=== PATIENT | male | born 1965 | race Caucasian/White ===

== ENCOUNTER 2019-05-22 06:22 | Inpatient (IN) | payer OTHER ==
[~2019-05-22] VITALS: Ht 175.3 cm; Wt 68.0 kg
--- NOTE | ~2019-05-22 | PROC ---
[address] [address] PROCEDURE REPORT Name: NAYELY CHERY Room: [address] IN ..#: [id number] Admission: 05/22/19 Attend Phys: Samantha Zuniga MD Discharge: Date of : 69 Report #: [id number] THIS REPORT FOR: //name// For GI report, please see the provation report in perceptive 7 content. By: [id number] Records Staff DEREK /BRENDAN
[2019-05-22 06:30] VITALS: BP 144/98
[2019-05-22 07:08] LABS: URINE BILIRUBIN 1+ (Negative); URINE BLOOD NEGATIVE (Negative); URINE CLARITY CLEAR; URINE COLOR YELLOW; URINE GLUCOSE-RANDOM NEGATIVE (Negative); URINE KETONES 1+ (Negative); URINE LEUKOCYTES-REFLEX NEGATIVE (Negative); URINE NITRITE-REFLEX NEGATIVE (Negative); URINE PROTEIN 1+ (Negative); URINE SPECIFIC GRAVITY >= 1.030 (1.005-1.030); URINE UROBILINOGEN 0.2 E.U./dl (0.2-1.0)
[2019-05-22 07:10] LABS: ICTOTEST (BILI CONFIRMATORY) Negative (Negative)
[2019-05-22 07:20] LABS: HEMATOCRIT 39.5 % (42.0-52.0); MCHC 30.5 g/dL (28.0-37.0); MCV 68.8 fL (80.0-100.0); MPV 8.2 fl. (7.2-11.1); NUCLEATED RBCS 0 /100WBC; PLATELET COUNT* 522 thou/uL (150-400); RBC 5.74 mil/uL (4.50-6.00); RDW-CV 17.4 % (10.5-14.5); WBC 13.9 thou/uL (4.0-11.0)
[2019-05-22 07:28] LABS: CALCIUM 9.1 mg/dL (8.5-10.1); CREATININE 1.3 mg/dL (0.6-1.3); POTASSIUM 3.9 mmol/L (3.5-5.1)
[2019-05-22 07:32] LABS: TOTAL BILIRUBIN 0.6 mg/dL (<0.1-1.0)
[2019-05-22 08:17] LABS: ABSOLUTE MONOCYTES 0.3 thou/uL (0.0-1.2); ABSOLUTE NEUTROPHILS 12.6 thou/uL (1.6-8.1); ATYPICAL LYMPHS 1 %
[2019-05-22 08:20] LABS: ANISOCYTOSIS 1+; PLATELET ESTIMATE INCREASED
[2019-05-22 08:21] LABS: MICROCYTES 3+
--- NOTE | 2019-05-22 11:38 | NUR ---
SURGERY NURSE AT BEDSIDE. TO TAKE PT TO PREOP VIA WHEELCHAIR.
[2019-05-22 11:39] VITALS: BP 127/80
[2019-05-22 22:04] VITALS: BP 123/76
[2019-05-22 23:06] LABS: GLYCOHEMOGLOBIN (HGB A1C) 5.8 % (4.8-5.6)
[2019-05-23] VITALS: BP 135/77
[2019-05-23 04:00] VITALS: BP 123/65
[2019-05-23 04:26] LABS: ABSOLUTE LYMPHOCYTES 0.6 thou/uL (0.8-5.3); ABSOLUTE NEUTROPHILS 10.2 thou/uL (1.6-8.1); BASOPHILS 0.1 %; HEMATOCRIT 32.3 % (42.0-52.0); MCH 20.7 pg (26.0-34.0); MCHC 30.3 g/dL (28.0-37.0); MCV 68.3 fL (80.0-100.0); MONOCYTES 8.2 %; MPV 7.8 fl. (7.2-11.1); NUCLEATED RBCS 0 /100WBC; POLYS 86.7 %; RBC 4.73 mil/uL (4.50-6.00); WBC 11.8 thou/uL (4.0-11.0)
[2019-05-23 04:42] LABS: ALBUMIN 2.9 g/dL (3.4-5.0); CALCIUM 7.8 mg/dL (8.5-10.1); CREATININE 0.9 mg/dL (0.6-1.3); POTASSIUM 4.1 mmol/L (3.5-5.1); TOTAL BILIRUBIN 0.4 mg/dL (<0.1-1.0); TOTAL PROTEIN 5.9 g/dL (6.4-8.2)
[2019-05-23 04:44] LABS: HEMOGLOBIN 9.8 gm/dL (14.0-18.0); PLATELET COUNT* 394 thou/uL (150-400)
--- NOTE | 2019-05-23 05:38 | NUR ---
REPORTED PAIN AT 0215 GAVE 2MG OF MORPHINE. HE HAD A BM AT 0415 IT WAS LOOSE AND WATERY. HE WAS ABLE TO AMBULATE WELL TO THE BATHROOM STANDBY ASSIST. NG TUBE HAS GOOD OUTPUT. STILL ON 3L OXYGEN AND LACTATED RINGERS AT 120 MLS/HR. SLEPT WELL MOST OF THE SHIFT. REPORTED NO PAIN AT AT 0530.
[2019-05-23 09:25] VITALS: BP 119/77
--- NOTE | 2019-05-23 11:26 | CON ---
[address] [address] CONSULTATION Name: MIRINAYELY Case Room: [address] IN M.R.#: [id number] Admission: 05/22/19 Attend Phys: Samantha Zuniga MD Discharge: Date of : 69 Report #: [id number] THIS REPORT FOR: //name// CC: [facility] physician/PCP Samantha Zuniga DATE OF SERVICE: 05/22/2019 ATTENDING PHYSICIAN: Dr. Singh CONSULTING PHYSICIAN: Dr. Jennings ASSESSMENT: 1. Large bowel obstruction. 2. Apple-core lesion on CT of colon. 3. Liver lesion. 4. Nausea and vomiting. RECOMMENDATIONS: 1. Thank you for the consultation. We will follow along. 2. I did discuss the patient's case with Gastroenterology. Gastroenterology will proceed with colonoscopy and attempted stent placement. 3. If stent is able to be placed, the patient will be allowed to be decompressed and he can therefore undergo a bowel prep and then colon resection with reanastomosis. 4. If stent is not possible, the patient will need an ex-lap with Gus's procedure this evening. The risks, benefits and alternatives of a colon resection were discussed with the patient. The risks discussed included but were not limited to the risk of bleeding, infection, postoperative abscess, anastomotic leak. If we operate tonight, he will be receiving an ostomy, he understands what an ostomy is. He understands that this would be an open procedure with a large incision, anesthesia (including cardiac, pulmonary, neurologic type complications) and . The patient had the opportunity to ask questions. All questions were answered to the best of my ability. At the end of the discussion, he and his did wish to proceed with surgery. 5. Await pathologic workup. If this is indeed adenocarcinoma, the patient will need the recommended adenocarcinoma of the colon workup. HISTORY OF PRESENT ILLNESS: The patient is a very pleasant 54-year-old gentleman who started feeling unwell on Saturday. The patient reports that he felt normal on Saturday. He developed abdominal pain. His last bowel movement was on Saturday. He has not passed flatus for several days. He then developed nausea and vomiting. He then presented to his primary care physician, [place] [address] CONSULTATION Name: NAYELY CHERY Manpreet Room: [address]#: [id number] Admission: 05/22/19 Attend Phys: Samantha Zuniga MD Discharge: Date of : 69 Report #: [id number] some radiologic tests were ordered and medications were prescribed. One of the medications prescribed was Linzess. The patient's abdominal pain, nausea and vomiting worsened overnight, so he presented to the ER this morning. CT scan was obtained in the ER that demonstrated a large bowel obstruction due to an apple-core lesion in the sigmoid colon. The CT scan also identified a liver lesion as well. PAST MEDICAL HISTORY: 1. Right inguinal hernia. 2. Left eye retinal detachment. PAST SURGICAL HISTORY: 1. Left eye in October, November, and March for retinal detachment. 2. The patient denies history of colonoscopy. SOCIAL HISTORY: Occasional, very rare alcohol use. Denies any use of tobacco. 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 FAMILY HISTORY: 1. Denies a family history of coagulopathy, malignancy. 2. Mother and father with heart disease and stroke. REVIEW OF SYSTEMS: CONSTITUTIONAL: No fever. No chills. HEENT: Denies blurring of vision, double vision, headaches, hearing loss, sinus drainage or sore throat. Denies blurring of vision, double vision, headaches, hearing loss, sinus drainage or sore throat. CARDIOVASCULAR: Denies chest pain, palpitations, orthopnea or paroxysmal nocturnal dyspnea. RESPIRATORY: Denies cough, wheezing, hemoptysis, or shortness of air. GASTROINTESTINAL: See below. GENITOURINARY: Denies dysuria or hematuria or kidney stones. No urinary frequency, urgency or incontinence. Denies dysuria or hematuria or kidney stones. No urinary frequency, urgency or incontinence. MUSCULOSKELETAL: No joint pain. No muscle pain. NEUROLOGICAL: Denies tremor, stroke or seizure. Denies tremor, stroke or seizure. HEMATOLOGIC/LYMPHATICS: Denies easy bruising, easy bleeding or enlarged lymph nodes. SKIN: No rash or ulceration. ENDOCRINE: No heat or cold intolerance PSYCHIATRIC: Denies depression, anxiety, or schizophrenia. PHYSICAL EXAMINATION: VITAL SIGNS: Temperature 36.7, pulse 87, respiratory rate 17, [place] [address] CONSULTATION Name: NAYELY CHERY Manpreet Room: [address]#: [id number] Admission: 05/22/19 Attend Phys: Samantha Zuniga MD Discharge: Date of : 69 Report #: [id number] 127/80, pulse ox 98% on room air. GENERAL: No apparent distress, alert and oriented. HEENT: NCAT, EOMI. NECK: Soft, normal range of motion. PULMONARY: Nonlabored breathing, equal excursion bilaterally. CARDIAC: Regular rate and rhythm, hemodynamically stable, normal capillary refill. ABDOMEN: Soft, very distended, nontender. No guarding, no rebound, no rigidity, no hernias appreciated on the ventral abdomen, groins were not examined. EXTREMITIES: No clubbing, cyanosis or edema. PSYCHIATRIC: Normal mood and affect. NEUROLOGIC: Grossly intact. Cranial nerves 2-12 grossly intact. LYMPHATICS: No cervical, inguinal or supraclavicular lymphadenopathy. MUSCULOSKELETAL: 5/5 strength in upper extremities and lower extremities bilaterally. LABORATORY DATA: White blood count 13.9, hemoglobin 12, hematocrit 39.5, platelets 522. Sodium 141, potassium 3.9, BUN 19, creatinine 1.3, glucose 140, calcium 9.1. CEA pending. Alkaline phosphatase 131, AST 17, ALT 28. CT abdomen and pelvis; impression: Focal mucosal nodularity, stricturing and narrowing of the proximal most sigmoid colon resulting in apple-core lesion consistent with and concerning for colonic malignancy. This is resulting in, I believe, a partial bowel obstruction related to the proximal sigmoid colon lesion. A 2.3 x 2.4 x 3 cm ill-defined low density within the left lobe of the liver concerning for and consistent with hepatic metastatic disease. Thank you for allowing me to participate in the care of this patient. Please do not hesitate to contact me with any questions or concerns. <ELECTRONICALLY SIGNED> By: Tray Jennings MD 05/23/19 1126 [id number] Jennings MD /charline
[2019-05-23 16:00] VITALS: BP 123/73
--- NOTE | 2019-05-23 19:00 | NUR ---
PATIENT PLEASANT AND COOPERATIVE W/ ASSESS AND CARES THIS SHIFT. NG REMOVED THIS AFTERNOON ORDERED. NOTED 300ML BROWN DRNG IN SUCTION CANISTER. ABD NOTED ROUND AND DISTENDED. PATIENT DENIES N/V. GOLYTELY GIVEN ORDERED. PATENT HAVING +RESULTS AT THIS TIME. FAMILY MEMBER/VISITORS IN PERIODICALLY THRU SHIFT. CLINIMIX INFUSING W/O DIFF. PATIENT ALERT AND ORIENTED. SEE MAR FOR PAIN INTERVENTION. CURRENTLY RESTING IN BED AT THIS TIME. CALL LIGHT IN REACH. FAMILY MEMBERS PRESENT. ~TJRN
[2019-05-23 20:52] VITALS: BP 109/69
[2019-05-24 04:36] LABS: ABSOLUTE LYMPHOCYTES 0.8 thou/uL (0.8-5.3); ABSOLUTE NEUTROPHILS 7.8 thou/uL (1.6-8.1); BASOPHILS 0.3 %; EOSINOPHILS 0.4 %; HEMATOCRIT 29.5 % (42.0-52.0); HEMOGLOBIN 9.1 gm/dL (14.0-18.0); MCH 20.8 pg (26.0-34.0); MCHC 30.7 g/dL (28.0-37.0); MCV 67.9 fL (80.0-100.0); MONOCYTES 10.5 %; NUCLEATED RBCS 0 /100WBC; PLATELET COUNT* 329 thou/uL (150-400); POLYS 80.8 %; RBC 4.35 mil/uL (4.50-6.00); RDW-CV 16.7 % (10.5-14.5); WBC 9.6 thou/uL (4.0-11.0)
[2019-05-24 04:44] LABS: CALCIUM 7.7 mg/dL (8.5-10.1); CREATININE 0.8 mg/dL (0.6-1.3); POTASSIUM 3.7 mmol/L (3.5-5.1)
--- NOTE | 2019-05-24 06:02 | NUR ---
PATIENT HAD MULTIPLE LOOSE STOOLS DURING SHIFT STILL DARK BROWN BUT THE AMOUNT IS SMALL. HE REPORTS NO PAIN OR NAUSEA. HIS O2 WAS 98% ON 2L AND WITHOUT IT WAS 89%. HE IS AMBULATING WELL RESTED WELL LAST NIGHT.
[2019-05-24 06:40] LABS: OVALOCYTES Occasional; PLATELET ESTIMATE ADEQUATE; TARGET CELLS Occasional
[2019-05-24 06:41] LABS: ANISOCYTOSIS 1+; HYPOCHROMASIA 2+; MICROCYTES 3+
[2019-05-24 08:30] VITALS: BP 127/82
[2019-05-24 11:30] VITALS: BP 130/79
[2019-05-24 16:30] VITALS: BP 151/83
--- NOTE | 2019-05-24 17:10 | NUR ---
PATIENT PLEASANT AND COOPERATIVE W/ ASSESS AND CARES THIS SHIFT. ALERT AND ORIENTED. UP TO BSC FREQUENTLY, NOTED WATERY STOOLS THIS SHIFT. CL LIQ DIET, HAL WELL. LT AC IV CATH ACCIDENTALLY PULLED OUT BY PATIENT THIS AM. RT AC 20GA INSERTED, IV CLINIMIX INFUSING W/O DIFF. SITE WNL. DENIES PAIN, STATES PASSING MORE GAS TODAY. NO N/V REPORTED. INDEP IN RM. ~TJRN
--- NOTE | 2019-05-24 17:20 | NUR ---
TENNILLE ROUNDING COMPLETED. ~tJRN
[2019-05-24 21:16] VITALS: BP 133/82
[2019-05-25] VITALS (12 sets, daily range): BP systolic 104–138; BP diastolic 65–93
[2019-05-25 04:44] LABS: HEMATOCRIT 33.8 % (42.0-52.0); HEMOGLOBIN 10.4 gm/dL (14.0-18.0); MCHC 30.8 g/dL (28.0-37.0); MCV 68.3 fL (80.0-100.0); RBC 4.95 mil/uL (4.50-6.00); RDW-CV 17.3 % (10.5-14.5); WBC 9.8 thou/uL (4.0-11.0)
[2019-05-25 05:06] LABS: ALBUMIN 2.8 g/dL (3.4-5.0); CALCIUM 8.1 mg/dL (8.5-10.1); CREATININE 0.8 mg/dL (0.6-1.3); MAGNESIUM 2.3 mg/dL (1.8-2.4); POTASSIUM 3.8 mmol/L (3.5-5.1); TOTAL BILIRUBIN 0.2 mg/dL (<0.1-1.0); TOTAL PROTEIN 6.4 g/dL (6.4-8.2)
--- NOTE | 2019-05-25 05:17 | NUR ---
CONTINUED TO HAVE SMALL AMOUNTS OF LIQUID STOOL THROUGHOUT NIGHT, STILL PASSING GAS. NO NAUSEA OR PAIN REPORTED. HE HAS BEEN ON CLEAR LIQUID DIET AND HAS BEEN AMBULATING WHEN POSSIBLE.
--- NOTE | 2019-05-25 11:50 | NUR ---
PT BACK FROM LIVER BIOPSY. PT STABLE. VITALS CHARTED. WILL CONTINUE TO MONITOR.
--- NOTE | 2019-05-25 14:30 | NUR ---
PT.AWAKE. HE STATED HE LIVES WITH HIS . SHE IS SUPPORTIVE. 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 NO USE OF DME. NO HH HX. HE CAN STATE HIS POC. HAD LIVER BX THIS AM. AWAIT RESULTS. MAY HAVE CHEMO PRIOR TO SURGERY IF BX + FOR CA. HE HAD A DETACHED RETINA IN OCT.- LEFT EYE. IT DETACHED AGAIN IN NOV. WAITING TO HEAL. VISION IS BLURRY IN L EYE. HE REFUSED INFORMATION ON DPOA/AD. CM WILL FOLLOW.
--- NOTE | 2019-05-25 16:46 | NUR ---
PT A&Ox4. VITALS STABLE. IV PATENT, INFUSING. DENIED PAIN. DENIED NAUSEA/VOMITING. TOLERATING CLEAR LIQUIDS AFTER LIVER BIOPSY. HAVING LIQUID STOOLS. UP AD LIOR. GI SIGNED OFF. ONCOLOGY CONSULTED. CALL LIGHT WITHIN REACH. WILL CONTINUE TO MONITOR.
[2019-05-26] VITALS: BP 131/70
[2019-05-26 04:00] VITALS: BP 121/74
--- NOTE | 2019-05-26 05:47 | NUR ---
PATIENT FELT SOME PAIN THROUGHOUT ABDOMEN RATED A 4/10. GAVE 650 MG TYLENOL AND HE WAS ABLE TO SLEEP THROUGH THE NIGHT, THIS WAS 2300. HE WAS UP A FEW TIMES TO USE THE COMMODE. A PAIN ASSESSMENT AT 0530 REPORTED NO PAIN. HE IS STILL UP AD LIOR AND ON CLEAR LIQUID DIET.
[2019-05-26 07:50] VITALS: BP 128/86
[2019-05-26 15:36] VITALS: BP 139/85
--- NOTE | 2019-05-26 15:52 | CON ---
[address] [address] CONSULTATION Name: NAYELY CHERY Room: [address] IN .R.#: [id number] Admission: 05/22/19 Attend Phys: Samantha Zuniga MD Discharge: Date of : 69 Report #: [id number] THIS REPORT FOR: //name// CC: [facility] physician/PCP Samantha Zuniga DATE OF SERVICE: 05/25/2019 REASON FOR CONSULTATION: Colon mass and liver lesion. REQUESTING PHYSICIAN: Dr. Zuniga. This is late entry. HISTORY OF PRESENT ILLNESS: The patient is a pleasant 54-year-old man who was in his usual state of health until a week ago when he developed constipation. He was not able to have bowel movements for several days. He developed abdominal pain and presented to Emergency Room on 05/22. He had imaging scans done. CT scan showed an apple core lesion of the colon in the sigmoid level with dilation of large bowel and a liver lesion. He was admitted to the hospital. Colonoscopy was attempted. He was found to have a near-obstructing lesion stricture on the sigmoid colon. Surgical and Oncological consultation was requested. This morning, he was seen by Dr. Jennings, surgeon. He is doing better. He does not have abdominal pain. He did have episodes of nausea, vomiting prior to stent placement, but he does not have vomiting anymore, although he is on the clear liquids. He denies having constipations previously. He had a retinal detachment a year ago. He was busy seeing . He recently has never had a screening colonoscopy. He denies weight loss, cough, shortness of breath. PAST MEDICAL HISTORY: Unremarkable other than retinal detachment. SOCIAL HISTORY: , has 2 sons. He has construction business. He does not smoke, does not drink alcohol. FAMILY HISTORY: Noncontributory. REVIEW OF SYSTEMS: GENERAL: Denies weight loss, fever, or chills. HEENT: Negative. CARDIOVASCULAR: No chest pain or palpitations. RESPIRATORY: No shortness of breath or cough. GASTROINTESTINAL: See above. GENITOURINARY: Negative. NEUROLOGIC: No [place] [address] CONSULTATION Name: NAYELY CHERY Room: [address]#: [id number] Admission: 05/22/19 Attend Phys: Samantha Zuniga MD Discharge: Date of : 69 Report #: [id number] PSYCHIATRIC: Negative. HEMATOLOGICAL: No history of bleeding or bruising. PHYSICAL EXAMINATION: GENERAL: Reveals a well-developed, well-nourished man, not in acute distress. VITAL SIGNS: Blood pressure 104/65, heart rate is 85, temperature 98.6. HEENT: Does not reveal thrush. HEART: Normal S1, S2. LUNGS: Clear. NECK: Supple. ABDOMEN: Somewhat distended, but no organomegaly. Nontender. No guarding. LOWER EXTREMITIES: No edema. SKIN: Does not reveal rash. LYMPHATIC: No peripheral lymphadenopathy. MENTAL STATUS: Alert and oriented x 3. LABORATORY DATA: White count 9.8, hemoglobin 10.4, MCV 68.3, platelets 380. Ferritin is 13. AST is 13, ALT 10, alkaline phosphatase 63. CEA is pending. CT scan reviewed, shows apple core lesion in the sigmoid, 2.4-cm liver lesion suspicious for metastatic disease. ASSESSMENT AND PLAN: Lesion: Clinical presentation is suspicious for sigmoid carcinoma with metastatic disease to the liver. Biopsy of the sigmoid lesion and the liver has been done. Pathology is pending. We will wait for pathology results. We did discuss treatment options of stage 2, 3, and 4 colon cancer with the patient. I discussed this case with Dr. Jennings as well. I recommend to wait for pathology results. If he has metastatic disease in the liver, it appears that he has oligometastatic disease. He had stent placed. Hopefully, this will prevent obstruction. We will proceed with neoadjuvant chemotherapy providing that his colon distention resolves. If he has stage 3 disease, we can proceed with surgery and adjuvant chemotherapy as needed, suspicious of metastatic cancer to liver. The patient understood discussions very well and agrees with the plan. Molecular studies are pending. It will be ordered after pathology results are available. Iron deficiency anemia: This will be addressed during surgery or during chemotherapy. IV access: We will wait for pathology results for final decisions. Port-A-Cath indications were discussed. He [place] [address] CONSULTATION Name: NAYELY CHERY Room: [address] IN [facility]#: [id number] Admission: 05/22/19 Attend Phys: Samantha Zuniga MD Discharge: Date of : 69 Report #: [id number] is indicated neoadjuvantly. Thank you very much for allowing me to participate in care of this patient. <ELECTRONICALLY SIGNED> By: Sweetie Altamirano MD 05/26/19 1552 1142 [id number] Altamirano MD /nt
--- NOTE | 2019-05-26 18:49 | NUR ---
ASSUMED CARE OF PATIENT AT APPROX 0730. ALERT AND ORIENTED X4. ASSESSMENT COMPLETED AND CHARTED. VSS ON ROOM AIR. NO COMPLAINTS OF PAIN, NAUSEA, OR SOA. PROCAL INFUSED ORDERED. PATIENT ON CLEAR LIQUIDS, NPO AT MIDNIGHT. UP AD LIOR IN THE ROOM AND WALKED THE UNIT WITH HIS TODAY. STOOL IS CLEAR LIQUID FROM BOWEL PREP. HOURLY ROUNDS COMPLETED. CALL LIGHT WITHIN REACH. WILL CONTINUE TO MONITOR.
[2019-05-26 19:39] LABS: INR 1.1; PROTIME 10.9 Seconds (9.20-11.50)
[2019-05-26 22:30] VITALS: BP 118/79
[2019-05-27 04:28] LABS: ALBUMIN 2.6 g/dL (3.4-5.0); CALCIUM 8.1 mg/dL (8.5-10.1); CREATININE 0.9 mg/dL (0.6-1.3); POTASSIUM 4.1 mmol/L (3.5-5.1); TOTAL BILIRUBIN 0.3 mg/dL (<0.1-1.0); TOTAL PROTEIN 5.9 g/dL (6.4-8.2)
[2019-05-27 04:58] LABS: ABSOLUTE BASOPHILS 0.1 thou/uL (0.0-0.2); ABSOLUTE EOSINOPHILS 0.3 thou/uL (0.0-0.7); ABSOLUTE LYMPHOCYTES 0.9 thou/uL (0.8-5.3); ABSOLUTE MONOCYTES 1.1 thou/uL (0.0-1.2); ABSOLUTE NEUTROPHILS 5.4 thou/uL (1.6-8.1); BASOPHILS 0.7 %; EOSINOPHILS 4.3 %; HEMATOCRIT 32.5 % (42.0-52.0); HEMOGLOBIN 9.9 gm/dL (14.0-18.0); LYMPHOCYTES 11.9 %; MCH 20.6 pg (26.0-34.0); MCHC 30.4 g/dL (28.0-37.0); MCV 67.7 fL (80.0-100.0); MONOCYTES 13.8 %; MPV 8.3 fl. (7.2-11.1); NUCLEATED RBCS 0 /100WBC; PLATELET COUNT* 355 thou/uL (150-400); POLYS 69.3 %; RBC 4.81 mil/uL (4.50-6.00); RDW-CV 16.9 % (10.5-14.5); WBC 7.8 thou/uL (4.0-11.0)
--- NOTE | 2019-05-27 05:56 | NUR ---
PATIENT HAS SLEPT WELL THROUGHOUT THE NIGHT. VSS ON RA. NO C/O PAIN. PATIENT HAS REMAINED NPO SINCE MIDNIGHT D/T SCHEDULED PROCEDURE TODAY. AT BEDSIDE. IV IN LEFT FOREARM-PROCALAMINE @ 125ML/HR. PATIENT INSTRUCTED TO USE CALL LIGHT WHEN NEEDING ASSISTANCE. HOURLY ROUNDS MADE. WILL CONTINUE WITH PLAN OF CARE AND NURSING TO MONITOR.
[2019-05-27 06:34] LABS: PLATELET ESTIMATE ADEQUATE
[2019-05-27 06:35] LABS: ANISOCYTOSIS 1+; HYPOCHROMASIA 1+; POIKILOCYTOSIS 1+
[2019-05-27 06:36] LABS: MICROCYTES 1+; OVALOCYTES 1+; POLYCHROMASIA 1+
[2019-05-27 08:00] VITALS: BP 132/86
[2019-05-27 09:26] VITALS: BP 132/86
[2019-05-27 09:34] VITALS: BP 132/86
--- NOTE | 2019-05-27 09:50 | NUR ---
OFF UNIT AT THIS TIME FOR SURGERY. CHART SENT WITH PT VIA BED.
[2019-05-27 10:22] VITALS: BP 135/79
--- NOTE | 2019-05-27 15:55 | NUR ---
RETURNED FROM PACU AT THIS TIME. ABD DRESSING TO MID-ABD WITH DIME-SIZED BRB C/D/I. ABD BINDER PRESENT. FAMILY AT BEDSIDE. O2 AT 2L NC. WILL CONTINUE TO MONITOR.
[2019-05-27 15:58] VITALS: BP 145/87
--- NOTE | 2019-05-27 16:06 | PATH ---
[address] [address] PATHOLOGY RPT PROCEDURE Name: BALTAZARBEVERLEYMARISELKaliALFONZO Manpreet Room: [facility] IN ..#: [id number] Admission: 05/22/19 Date of : 69 Discharge: Report #: [id number] Path Case #: [id number] [facility] Accession Number: [id number] . 01 Material submitted: . liver - LEFT LOBE LIVER BIOPSY. Modifiers: left . 01 Clinical history: . 3.5 cm liver mass, history of colon mass 3.78 x 2.55 x 2.41 cm, left lobe . 02 Diagnosis: Left liver lobe mass, image guided core biopsies: - METASTATIC ADENOCARCINOMA, MODERATELY DIFFERENTIATED, TYPICAL OF COLORECTAL PRIMARY, INVOLVING LIVER TISSUE. SEE COMMENT. (ROHAN:letitia; 05/27/2019) QTP/05/27/2019 . 02 Comment: The biopsy shows several cores of benign liver tissue as well as a core of adenocarcinoma with gland formation and "dirty necrosis". A panel of properly controlled immunohistochemical stains performed on A1 show the malignant cells to have the following characteristics, supporting the diagnosis: CDX2: Positive CK20: Positive CK7: Negative. . Dr. Samantha Zuniga notified of preliminary findings at approximately 1100 on 05/26/2019. Reviewed with Dr. Tay Adame who agrees with the diagnosis. (ROHAN:pit; 05/27/2019) . 02 Electronically signed: . Jared Marlow MD, Pathologist NPI- [id number] . 01 Gross description: . Received in formalin labeled "Alfonzo Meza, liver biopsy," are multiple fragments of needle cores of syed soft tissue measuring 0.8 x 0.5 x 0.1 cm in aggregate dimensions. The specimen is filtered and entirely submitted in cassette A1. (TSD; 05/25/2019) TOB/TOB . 02 Pathologist provided ICD-10: C78.7 . 02 [place] [address] PATHOLOGY RPT PROCEDURE Name: ALFONZO MEZA Room: [address] IN [facility]#: [id number] Admission: 05/22/19 Date of : 69 Discharge: Report #: [id number] Path Case #: [id number] [facility] . [id number], [id number], [id number] Specimen Comment: A courtesy copy of this report has been sent to Specimen Comment: [phone], , . Specimen Comment: Report sent to ,DR ZUNIGA / DR SANCHEZ Performed at: [address], [place], [place] [id number] MD Yovani Solano MD Phone: [phone] Performed at: 02 [facility] [address], [place], [place] [id number] MD Jared Marlow MD Phone: [phone]
[2019-05-27 20:20] VITALS: BP 129/84
[2019-05-28 00:15] VITALS: BP 125/73
[2019-05-28 03:57] VITALS: BP 119/79
[2019-05-28 04:52] LABS: HEMATOCRIT 32.7 % (42.0-52.0); HEMOGLOBIN 9.8 gm/dL (14.0-18.0); MCH 20.8 pg (26.0-34.0); MCHC 30.1 g/dL (28.0-37.0); RBC 4.73 mil/uL (4.50-6.00); RDW-CV 17.2 % (10.5-14.5); WBC 11.6 thou/uL (4.0-11.0)
[2019-05-28 05:04] LABS: ALBUMIN 2.2 g/dL (3.4-5.0); CALCIUM 8.1 mg/dL (8.5-10.1); CREATININE 1.1 mg/dL (0.6-1.3); PHOSPHORUS* 3.2 mg/dL (2.5-4.9)
--- NOTE | 2019-05-28 05:20 | NUR ---
PT ALERT AND ORIENTED. VITALS STABLE. MEDS GIVEN ORDERED. PAIN MANAGED WITH OXY IR, SCHEDULED TYLENOL AND TORADOL. PT WAS ABLE TO BE UP TO THE CHAIR WITH ASSIST. IV FLUID RUNNING AT 125 ORDERED. PT TOLERATED CLEAR LIQUID DIET WITHOUT NAUSEA/VOMITING. HOURLY ROUNDING COMPLETED. WILL CONTINUE TO MONITOR.
[2019-05-28 07:30] VITALS: BP 128/79
--- NOTE | 2019-05-28 09:12 | OP ---
[address] [address] OPERATIVE REPORT Name: NAYELY CHERY Room: [address] IN .R.#: [id number] Admission: 05/22/19 Attend Phys: Samantha Zuniga MD Discharge: Date of : 69 Report #: [id number] THIS REPORT FOR: //name// CC: BERTHA physician/PCP Samantha Zuniga DATE OF SERVICE: 05/27/2019 PROCEDURES PERFORMED: 1. Exploratory laparotomy. 2. Left hemicolectomy and sigmoidectomy with colorectal anastomosis. 3. Mobilization of splenic flexure. PRE-PROCEDURAL DIAGNOSES: 1. Large bowel obstruction. 2. 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 3. 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 4. Abdominal pain. POST-PROCEDURAL DIAGNOSES: 1. Large bowel obstruction. 2. 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 3. 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 4. Right hepatic lobe nodule, palpable only. 5. Abdominal pain. SURGEON: Tray Jennings MD SEATER ASSEMBLER: None. ANESTHETIC: General. ESTIMATED BLOOD LOSS: 250 mL. COMPLICATIONS: None. FINDINGS: 1. Left liver lobe lesion palpable. 2. Small subcentimeter right hepatic lobe lesion that was palpable only and not visible, on segment 7 or 8 of liver. 3. No palpable or visual peritoneal metastasis. 4. No omental or mesenteric metastasis. 5. No noticeably detected lymphadenopathy of the mesocolon. 6. Sigmoid colon stricture with stent present. Wire of the [place] [address] OPERATIVE REPORT Name: NAYELY CHERY Room: [address] IN ..#: [id number] Admission: 05/22/19 Attend Phys: Samantha Zuniga MD Discharge: Date of : 69 Report #: [id number] through the wall of the colon. 7. No palpable or visible descending colon mass. SPECIMENS: Left colon and sigmoid colon sent as one specimen. INDICATION FOR PROCEDURE: The patient is a very pleasant gentleman who presented last Saturday with a complete large bowel obstruction. He was initially consented for colon resection with end colostomy. GI was successful in stenting the patient. This allowed for decompression. Discussion was held with a surgical oncologist, hepatobiliary surgeon, grinder operator tool, and medical oncologist regarding best pathway forward. There were differing opinions on this matter; however, I did elect to attempt to allow the patient to decompress in order to undergo 4 cycles of induction chemotherapy before a surgery. This would allow potentially a concomitant colectomy as well as left hepatectomy. However, despite the patient continuing to have bowel movements, he did continue to have abdominal pain. Furthermore, due to his abdominal pain, a repeat CT scan was ordered on 05/26/2019 which was concerning for transition point at the splenic flexure, which was a site previously concerned about having a synchronous lesion by different team members. However this was not assessable via endoscopy due to the more distal sigmoid stricture and now stent. Due to concerns about there being a transition point proximal to where his stent was placed and the patient's ongoing abdominal pain and abdominal distention, the patient was consented for a left hemicolectomy and sigmoidectomy. The risks, benefits and alternatives of the procedure were discussed with the patient, his and several other family members. Risks discussed included but were not limited to the risk of bleeding, infection (wound infection, postoperative abscess, postoperative leak, missed bowel injury), he was informed that this would be an open procedure due to not being able to perform this procedure laparoscopically due to bowel distention, anesthesia (cardiac, pulmonary and neurologic type complications), damage to ureters, damage to any intraabdominal anatomy, anastomotic leak requiring further surgery for the hospitalization and could be a life-altering event, postoperative ileus, postoperative pain and . The patient had the opportunity to ask questions. All questions were answered to the best of my ability. Alternatives discussed included no surgery and continued medical management. At the end of the discussion, the patient and his family did wish to proceed with surgery. DESCRIPTION OF PROCEDURE: After informed consent was obtained, the patient was taken to the operating room and placed in the supine position. General anesthesia was induced. Pre-procedural antibiotics were administered. He was placed in stirrups. Ziegler catheter was inserted. His arms were extended. The anterior abdomen was prepped and draped in the usual sterile fashion and a timeout was performed. [place] [address] OPERATIVE REPORT Name: NAYELY CHERY Room: [address] IN [facility]#: [id number] Admission: 05/22/19 Attend Phys: Samantha Zuniga MD Discharge: Date of : 69 Report #: [id number] Procedure began by making a midline exploratory laparotomy incision, peritoneal cavity was entered, the abdomen was inspected. There was a new finding of a right hepatic nodule in segment 7 or 8 that was not accessible to biopsy. The patient was otherwise free of any distant metastatic disease of the peritoneum, mesentery, mesocolon, omentum or other organs. Therefore, the dissection began in the pelvis where the sigmoid colon was adhered to the lateral sidewall by adhesions between the lateral sidewall and the tumor. These were carefully taken down. The left ureter was easily identified, swept away and well protected throughout the course of the procedure. The lateral attachments of the sigmoid colon were easily mobilized. The attachments between the colon and the peritoneum were taken down using electrocautery. The white line was then mobilized on the descending colon up towards the splenic flexure. The sigmoid colon was mobilized all the way down to the rectum using extreme caution to identify the ureter throughout this course and to protect it. The sigmoid colon was mobilized all the way down to the rectum. There was a tattoo lizzeth made by GI where the distal aspect of the stent was located / ended. There was a defect made in the mesorectum at the top of the rectum at the location of the tattoo and the junction of the rectum and sigmoid colon. The contour blue load stapler was passed through this defect and the stent was identified and ensured not to be within the grasp of the stapler. The left ureter was identified and ensured not to be within the grasp of the stapler. The stapler was fired transecting the sigmoid colon off of the rectum. Next, I mobilized the splenic flexure by taking the omentum off of the transverse colon and taking down the splenic flexure ligaments. This was relatively easy due to his splenic flexure location. The splenic flexure was entirely mobilized, which then allowed the transverse colon to be pulled down into the pelvis and he did have a floppy transverse colon. The left branch of the middle colic artery was identified. The location of the proximal transection point was picked at the location of the left branch of the middle colic artery. A defect was made in the mesocolon at this location. The mesentery was mobilized doing an oncologic-type resection. The inferior mesenteric vein was transected near the level of the pancreatic tail. The mesocolon was mobilized up to the planned transection point. The middle colic artery was identified and well protected. Next, 2 bowel clamps were placed on the colon and a scalpel was used to transect in between. The specimen was now free. It was opened up on the back table and inspected. The stent was completely removed within the specimen. The stent had eroded through the bowel wall and before manipulation of the colon was performed, there were wires sticking through the colon. This area was oversewn with a silk suture to prevent contamination throughout the case. The omentum was mobilized off of the transverse colon towards the hepatic flexure. The transverse colon was able to be pulled down [place] [address] OPERATIVE REPORT Name: NAYELY CHERY Room: [address] IN [facility].#: [id number] Admission: 05/22/19 Attend Phys: Samantha Zuniga MD Discharge: Date of : 69 Report #: [id number] There was no tension. The mesocolon was mobilized all the way to the middle colic artery to give as much length as I needed. The colon was oriented towards the right side of the abdomen to prevent it from draping it across the entire small bowel. It was brought down into the pelvis and it reached easily. There was no tension. The bowel clamp was taken off of the colon and a size 28 EEA stapler anvil was inserted into the colonic lumen and brought out the antimesenteric tinea. Maritza clamps were used to reapproximate the colotomy and colotomy was closed with a laparoscopic TINO blue load stapler. A palpable marginal artery pulse was present at the end of the colon that was going to be used for anastomosis. The colon was then brought down into the pelvis. Sizers were passed through the anus into the rectum. The 28 EEA stapler was passed through the anus into the rectum. The prong was extended. The EEA anvil was passed onto the prong. The stapler was closed down while ensuring that there were no other structures within the grasp of the stapler. The orientation of the colon was ensured and there was no tension on the colon. The stapler was fired. The donuts were inspected. The donuts were well intact. The anastomotic leak test was performed. The leak test was negative. There was no tension on the colon. There was a palpable marginal artery pulse at the end of this. This marked the conclusion of the anastomosis. The abdomen was irrigated out. Hemostasis was present. The small bowel was ran. There were some adhesions between knuckles of small bowel that looked concerning and these were lysed with Metzenbaum scissors. The abdomen was suctioned out. Hemostasis was present. Seprafilm was placed. The fascia was reapproximated in the midline using 0 PDS in a continuous running fashion. The wound was irrigated. The skin was closed using david. The patient tolerated the procedure well and there were no adverse events throughout the course of the procedure. The patient was extubated and transferred to the PACU in stable condition. <ELECTRONICALLY SIGNED> By: Tray Jennings MD 05/28/19 0912 [id number] Jennings MD /nt
[2019-05-28 16:00] VITALS: BP 111/71
--- NOTE | 2019-05-28 18:18 | CON ---
[address] [address] CONSULTATION Name: NAYELY CHERY Room: [address] IN M.R.#: [id number] Admission: 05/22/19 Attend Phys: Samantha Zuniga MD Discharge: Date of : 69 Report #: [id number] THIS REPORT FOR: //name// CC: Kenneth Hopkins MD FAM physician/PCP Samantha Zuniga MD DATE OF SERVICE: 05/22/2019 REFERRING PHYSICIAN: Tray Jennings MD., who is with Dr. Deysi Garber' office. REASON FOR CONSULTATION: Bowel obstruction. IMPRESSION: 1. Large bowel obstruction, likely related to an apple-core lesion noted within the mid sigmoid colon - suspect malignant stricture. 2. Microcytic anemia, most compatible with iron deficiency anemia - suspect related to #1. 3. Abnormal CAT scan compatible with #1 with possible second lesion in the more proximal descending colon - evaluate for synchronous colon cancer. RECOMMENDATIONS: 1. We will proceed with flexible sigmoidoscopy with possible colonic stent placement to palliate his sigmoid obstruction in an effort to have him undergo bowel preparation and a 1-stage operation for colon cancer. 2. I will also attempt to advance the regular upper endoscope through the stricture under fluoroscopy to see if this second lesion within the descending colon is real or not. 3. If the colonic stent is able to be successfully deployed, I would then use the NG tube to give him bowel preparation over the next 2-3 days so he can have a 1-stage operation. If I am not able to evaluate the left colon lesion, I would recommend the patient to undergo a left hemicolectomy with primary anastomosis as opposed to a sigmoid colon resection with primary anastomosis. 4. I have discussed all these plans with the patient as well as his family and everyone is in agreement with the same. HISTORY OF PRESENT ILLNESS: The patient is a very pleasant 54-year-old white male who had been feeling poorly off and on since the first part of this week. He has been having some problems with his bowels being more erratic, but over the last several days he has not been able to pass much in the way of gas. Then started having problem with nausea and vomiting. He presented to the ER with what appears to be a large bowel obstruction due to an apple-core lesion noted within the sigmoid colon. There is also a liver lesion as well. He has never had any previous studies of his upper or lower GI tract in the past. He has no known family history of any colon polyps or colon cancer[place] [address] CONSULTATION Name: NAYELY CHERY Room: [address] IN [facility]#: [id number] Admission: 05/22/19 Attend Phys: Samantha Zuniga MD Discharge: Date of : 69 Report #: [id number] symptoms referable to his upper GI tract including chronic reflux or indigestion. He is not taking nonsteroidals. He has otherwise been very healthy. ALLERGIES: None. MEDICATIONS: At home are just intermittent nonsteroidals. PAST MEDICAL HISTORY: Significant for multiple surgeries for retinal detachment. He has had inguinal hernia repair as well. SOCIAL HISTORY: The patient does not smoke, occasionally drinks alcohol. FAMILY HISTORY: Negative. PHYSICAL EXAMINATION: GENERAL: Pleasant 54-year-old white male who is awake and alert. CARDIOPULMONARY: Revealed regular rate and rhythm. LUNGS: Clear. ABDOMEN: Soft. It was distended. He does have an NG tube in place. LABORATORY DATA: From admission revealed a white count of 13.9, hemoglobin 12.0, platelet count 522,000, MCV is 58.8 and RDW is 17.4. His differential is normal. Sodium 141, potassium 3.9, chloride 101, bicarbonate is 24, BUN is 19, creatinine 1.3 for GFR of 58. Total bilirubin is 0.6, alkaline phosphatase is 131, AST 17, ALT 28, and albumin 4.0. CT scan of the abdomen and pelvis was reviewed and revealed stricturing or narrowing at the level of proximal to mid sigmoid colon resulting in apple-core lesion concerning for malignancy. There also appeared to be another lesion proximal to this, which may or may not be real within the mid descending colon, which may or may not be able to be evaluated endoscopically. There is also an area within the liver suggestive of measuring 2.3 x 2.4 x 3 cm in the left lobe of the liver concerning for possible metastatic disease. DISCUSSION: At the present time, the patient appears to be an adequate candidate to undergo endoscopic evaluation. We will proceed with flexible sigmoidoscopy tonight and make further recommendations thereafter. <ELECTRONICALLY SIGNED> By: Carlton Clemente DO 05/28/19 1818 [id number] Clemente DO /nt
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
[2019-05-28 21:26] VITALS: BP 115/73
[2019-05-29 01:43] LABS: HEMATOCRIT 28.5 % (42.0-52.0); HEMOGLOBIN 8.7 gm/dL (14.0-18.0); MCH 21.1 pg (26.0-34.0); MCHC 30.5 g/dL (28.0-37.0); MCV 69.3 fL (80.0-100.0); MPV 8.3 fl. (7.2-11.1); RBC 4.12 mil/uL (4.50-6.00); RDW-CV 17.7 % (10.5-14.5); WBC 12.9 thou/uL (4.0-11.0)
[2019-05-29 02:25] LABS: ALBUMIN 2.1 g/dL (3.4-5.0); CALCIUM 7.8 mg/dL (8.5-10.1); MAGNESIUM 2.2 mg/dL (1.8-2.4); POTASSIUM 4.7 mmol/L (3.5-5.1); TOTAL BILIRUBIN 0.3 mg/dL (<0.1-1.0); TOTAL PROTEIN 5.6 g/dL (6.4-8.2)
--- NOTE | 2019-05-29 06:26 | NUR ---
PATIENT SLEPT WELL THROUGH SHIFT. RECEIVED SCHEDULED KETOROLAC AND TYLENOL. HE DID REPORT HIS PAIN AN 05/23 AT 0130. GAVE 2 TABS OF OXYCODONE AND HE WAS REPORTING HIS PAIN AN HOUR LATER 11/23.
[2019-05-29 07:55] VITALS: BP 126/63
[2019-05-29 12:47] VITALS: BP 115/73
[2019-05-29 16:00] VITALS: BP 121/72
--- NOTE | 2019-05-29 17:10 | NUR ---
SW continuing to follow; no needs or concerns presented at this time. SW to continue to follow to assist with safe dc planning and support as needed.
--- NOTE | 2019-05-29 18:25 | NUR ---
PATIENT RESTING UP IN CHAIR. PATIENT IS UP AD LIOR IN ROOM AND HAS WALKED IN HALLS MULTIPLE TIMES TODAY. PATIENT TOLERATED CLEAR LIQUIDS FOR BREAKFAST AND LUNCH BUT NAUSEATED AT DINNERTIME, ZOFRAN GIVEN. PHYSICIAN CHANGED DIET BACK TO NPO WITH ICE CHIPS. PATIENT HAS HAD ABDOMINAL PAIN TODAY BUT STATES IT IS MUCH IMPROVED. PATIENT HAS HAD SCHEDULED TORADOL BUT HAS REFUSED NEED FOR OTHER PAIN MEDICATIONS. PATIENT HAS NOT HAD BOWEL MOVEMENT AND NOT PASSING GAS. PATIENT DENIES ANY NEEDS AT THIS TIME. CALL LIGHT WITHIN REACH. WILL CONTINUE TO MONITOR.
[2019-05-29 20:15] VITALS: BP 141/85
[2019-05-30 04:37] LABS: HEMATOCRIT 30.1 % (42.0-52.0); HEMOGLOBIN 9.1 gm/dL (14.0-18.0); MCH 20.8 pg (26.0-34.0); MCHC 30.3 g/dL (28.0-37.0); MCV 68.6 fL (80.0-100.0); RBC 4.4 mil/uL (4.50-6.00); RDW-CV 18.1 % (10.5-14.5); WBC 14.2 thou/uL (4.0-11.0)
[2019-05-30 05:05] LABS: ALBUMIN 2.1 g/dL (3.4-5.0); CALCIUM 8.1 mg/dL (8.5-10.1); MAGNESIUM 2.4 mg/dL (1.8-2.4); PHOSPHORUS* 2.4 mg/dL (2.5-4.9); POTASSIUM 4.9 mmol/L (3.5-5.1)
--- NOTE | 2019-05-30 05:24 | NUR ---
PT ALERT AND ORIENTED. VITALS STABLE. PAIN CONTROLLED BY SCHEDULED TORADOL. PT REPORTED NAUSEA/VOMITING, RESOLVED WITH ZOFRAN. IV FLUIDS RUNNING ORDERED. NPO EXCEPT MEDS/ICE CHIPS. HOURLY ROUNDING COMPLETED. WILL CONTINUE TO MONITOR.
[2019-05-30 08:41] VITALS: BP 121/80
[2019-05-30 16:44] VITALS: BP 141/85
--- NOTE | 2019-05-30 18:56 | NUR ---
PATIENT ALERT AND ORIENTED THRU SHIFT. AMBULATING IN HALLS W/ STEADY GAIT. IV FLUIDS INFUSING S/O DIFF IN RT HAND SITE. STATES +PASSING GAS, +BELCHING THIS SHIFT. UP TO SHOWER THIS AFTERNOON, LINENS CHANGED. SITTING UP IN RECLINER. PRESENT IN RM AT THIS TIME. STATES [employer] DISCOMTFORT 12/21 AFTER RETURNING TO RECLINER AT THIS TIME. DENIES OTHER NURSING NEEDS CURRENTLY. CALL LIGHT IN REACH. TV ON. ABD BINDER IN PLACE. ~TJRN
--- NOTE | 2019-05-30 19:00 | NUR ---
HRLY ROUNDING DONE. ~REANNA
[2019-05-30 20:10] VITALS: BP 148/78
[2019-05-31 03:38] LABS: HEMATOCRIT 27.7 % (42.0-52.0); HEMOGLOBIN 8.4 gm/dL (14.0-18.0); MCH 20.8 pg (26.0-34.0); MCHC 30.4 g/dL (28.0-37.0); MCV 68.6 fL (80.0-100.0); MPV 7.9 fl. (7.2-11.1); RBC 4.03 mil/uL (4.50-6.00); RDW-CV 17.9 % (10.5-14.5); WBC 14.1 thou/uL (4.0-11.0)
[2019-05-31 04:07] LABS: ALBUMIN 1.7 g/dL (3.4-5.0); CALCIUM 8.1 mg/dL (8.5-10.1); CREATININE 1.1 mg/dL (0.6-1.3); MAGNESIUM 2.2 mg/dL (1.8-2.4); POTASSIUM 5.3 mmol/L (3.5-5.1); TOTAL BILIRUBIN 0.3 mg/dL (<0.1-1.0); TOTAL PROTEIN 5.5 g/dL (6.4-8.2)
--- NOTE | 2019-05-31 06:33 | NUR ---
PT ALERT AND ORIENTED. VITALS STABLE RA. PAIN WELL MANAGED BY SCHEDULED TORADOL. PT VOMITED 300ML OF GREENISH BROWN EMESIS RIGHT AFTER TAKING PO MEDS. NAUSEA/VOMITING RESOLVED BY ZOFRAN. PT REPORTED BM X 3 TIMES THROUGH THE NIGHT. FLUIDS RUNNING ORDERED. NPO EXCEPT ICECHIPS. AT BEDSIDE. WILL CONTINUE TO MONITOR.
[2019-05-31 08:40] VITALS: BP 117/75
[2019-05-31 16:25] VITALS: BP 106/63
--- NOTE | 2019-05-31 18:39 | NUR ---
PATIENT PLEASANT AND COOPERATIVE W/ ASSESS AND CARES THIS SHIFT. STATES HAVING 5 LOOSE STOOLS SINCE LAST NOC TOTAL. +PASSING GAS/BELCHING. PATIENT DENIES N/V. PAIN CONTROLLED, SEE DEC. AMB IN HALLS W/ SLOW, STEADY GAIT, PRESENT. IV CLINIMIX INFUSING W/O DIFF, SITE NOTED WNL. UP TO RECLINER THRU MOST OF SHIFT. CALL LIGHT IN REACH. IN RECLINER AT THIS TIME. WATCHING TV. DENIES OTHER NURSING NEEDS. HRLY ROUNDS DONE.
[2019-05-31 20:00] VITALS: BP 128/78
--- NOTE | 2019-06-01 05:17 | NUR ---
MEDS GIVEN ORDERED. VSS RA. NO N/V THIS SHIFT. PAIN WELL MANAGED BY SCHEDULED TORADOL AND TYLENOL. RESTING/SLEEPING IN BED THROUGH THE NIGHT. STILL NPO EXCEPT MEDS/ICE CHIPS. WILL CONTINUE TO MONITOR.
[2019-06-01 05:23] LABS: HEMATOCRIT 23.5 % (42.0-52.0); HEMOGLOBIN 7.4 gm/dL (14.0-18.0); MCH 21.3 pg (26.0-34.0); MCHC 31.4 g/dL (28.0-37.0); MCV 67.9 fL (80.0-100.0); MPV 7.8 fl. (7.2-11.1); PLATELET COUNT* 409 thou/uL (150-400); RBC 3.46 mil/uL (4.50-6.00); RDW-CV 17.6 % (10.5-14.5); WBC 11.3 thou/uL (4.0-11.0)
[2019-06-01 05:33] LABS: CALCIUM 7.9 mg/dL (8.5-10.1); CREATININE 0.9 mg/dL (0.6-1.3); MAGNESIUM 2.2 mg/dL (1.8-2.4); POTASSIUM 4.4 mmol/L (3.5-5.1)
[2019-06-01 07:10] VITALS: BP 118/78
[2019-06-01 09:16] LABS: ABSOLUTE BASOPHILS 0.1 thou/uL (0.0-0.2); ABSOLUTE EOSINOPHILS 0.3 thou/uL (0.0-0.7); ABSOLUTE LYMPHOCYTES 1.2 thou/uL (0.8-5.3); ABSOLUTE MONOCYTES 1.3 thou/uL (0.0-1.2); ABSOLUTE NEUTROPHILS 8.5 thou/uL (1.6-8.1); BASOPHILS 0.5 %; EOSINOPHILS 2.5 %; LYMPHOCYTES 10.2 %; MONOCYTES 11.7 %; POLYS 75.1 %
[2019-06-01 10:14] LABS: HYPOCHROMASIA 3+; MICROCYTES 2+; OVALOCYTES 1+; PLATELET ESTIMATE ADEQUATE
[2019-06-01 10:15] LABS: SCHISTOCYTES 1+
--- NOTE | 2019-06-01 17:06 | PATH ---
[address] [address] PATHOLOGY RPT PROCEDURE Name: ALFONZO MEZA Room: [address] IN [facility].#: [id number] Admission: 05/22/19 Date of : 69 Discharge: Report #: [id number] Path Case #: [id number] [facility] Accession Number: [id number] . 01 Material submitted: . PART A: colon - LEFT COLON AND SIGMOID COLON. Modifiers: left, sigmoid PART B: colon - ANASTOMOTIC RING X2 . 01 Clinical history: . Large bowel obstruction due to colon mass; history of colon cancer . 02 Diagnosis: A. Left colon and sigmoid: - ULCERATED, CIRCUMFERENTIAL, COLONIC ADENOCARCINOMA, MODERATELY DIFFERENTIATED, FORMING A MASS MEASURING 4.8 X 2.0 X 1.1 CM, IN ASSOCIATION WITH GROSSLY IDENTIFIED COLONIC LUMINAL STENT, AND WITH TRANSMURAL INVASION INTO IMMEDIATE SUBSEROSA, WITHOUT INVOLVEMENT OF INKED FREE SEROSAL SURFACE. - All surgical margins free of involvement. - 22 benign pericolic lymph nodes (0/22). (See comment). . B. Anastomotic ring x2: - Two benign colonic anastomotic rings, one with black pigment tattooing. . (ROHAN:heather; 06/01/2019) . . . Surgical Pathology Cancer Case Summary . COLON AND RECTUM: Resection, Including Transanal Disk Excision of Rectal Neoplasms . Procedure ___ Other (specify): Left colon and sigmoid colon resection . Tumor Site ___ Left (descending) colon ___ Sigmoid colon . . Tumor Size Greatest dimension (centimeters): 4.8 cm + Additional dimensions: 2.0 x 1.1 cm . Macroscopic Tumor Perforation ___ [place] [address] PATHOLOGY RPT PROCEDURE Name: ALFONZO MEZA Room: [address] IN [facility].#: [id number] Admission: 05/22/19 Date of : 69 Discharge: Report #: [id number] Path Case #: [id number] Histologic Type ___ Adenocarcinoma . . Histologic Grade ___ G2: Moderately differentiated . Tumor Extension ___ Tumor invades through the muscularis propria into pericolorectal tissue . Margins ___ All margins are uninvolved by invasive carcinoma, high-grade dysplasia, intramucosal adenocarcinoma, and adenoma Margins examined: Proximal, distal and mesenteric + Distance of invasive carcinoma from closest margin: 4.3 cm + Specify closest margin: Mesenteric . . Proximal Margin ___ Uninvolved by invasive carcinoma + Distance of tumor from margin: At least 4.6 cm (See comment) . Distal Margin ___ Uninvolved by invasive carcinoma + Distance of tumor from margin: At least 4.6 cm (See comment) . Mesenteric Margin ___ Uninvolved by invasive carcinoma Distance of tumor from margin: 4.3 cm . . Treatment Effect ___ No known presurgical therapy . . Lymphovascular Invasion ___ Not identified . Perineural Invasion ___ Not identified . + Tumor Budding + ___ Number of tumor buds in 1 "hotspot" field (specify total number in area=0.785 mm2): Greater than 10 + ___ High score (10 or more) . + Type of Polyp in Which Invasive Carcinoma Arose + ___ [place] [address] PATHOLOGY RPT PROCEDURE Name: ALFONZO MEZA Room: [address] IN [facility]#: [id number] Admission: 05/22/19 Date of : 69 Discharge: Report #: [id number] Path Case #: [id number] . Tumor Deposits ___ Not identified . Regional Lymph Nodes . Number of Lymph Nodes Involved: 0 . Number of Lymph Nodes Examined: 22 . . PATHOLOGIC STAGE CLASSIFICATION (pTNM, AJCC 8th Edition) . Primary Tumor (pT) ___ pT3:Tumor invades through the muscularis propria into pericolorectal tissues . Regional Lymph Nodes (pN) ___ pN0:No regional lymph node metastasis . Distant Metastasis (pM) ___ pM1:Metastasis to one or more distant sites or organs or peritoneal metastasis is identified (See comment) . . + Additional Pathologic Findings + ___ None identified . (ROHAN:mml; 06/01/2019) . . . . MICROSATELLITE INSTABILITY REPORT (MSI): . At the request of the oncologist, mismatch repair (MMR) protein immunohistochemical staining was performed. . Specimen:Formalin fixed paraffin embedded tissue Specimen ID:[id number] Reason for testing:To evaluate for evidence of defective mismatch repair proteins. Method:Immunohistochemical staining for the presence or absence of protein expression of one or more of the following MMR protein markers: MLH1, MSH2, MSH6 and PMS2. Tumor type: Adenocarcinoma . Results (A6): MLH1 [place] [address] PATHOLOGY RPT PROCEDURE Name: ALFONZO MEZA Room: [address] [facility] IN [facility]#: [id number] Admission: 05/22/19 Date of : 69 Discharge: Report #: [id number] Path Case #: [id number] MSH2 -Preserved MSH6 -Preserved PMS2 -Preserved . Mismatch Repair Status: MMR Proficient (MMR-P) . Interpretation: . (MMR-P) All four MMR proteins are preserved within tumor cells. This suggests the presence of normal DNA mismatch repair function within the tumor and an observable defect in mismatch repair is not identified. The likelihood that this patient has an inherited germline mutation syndrome due to defective mismatch repair is reduced but not totally eliminated. If the patient has a strong personal or family history of HPNCC/Gan syndrome related cancers (colorectal, endometrial, gastric, ovarian, pancreatic, ureter/renal pelvis, biliary tract, brain, small bowel and Jaciel-Yan syndrome), consider MSI testing by PCR methodology. Suggest clinical correlation and follow up. . . . These test results are designed for screening purposes only and are useful tools in identifying cancer patients that are more likely to have Gan Syndrome related diagnoses. Tests should be interpreted in the context of clinical findings, family history and laboratory data. Abnormal IHC results for MMR protein expression are not considered diagnostic for Gan Syndrome. . (ROHAN:heather; 06/01/2019) [facility]/06/01/2019 . 02 Comment: Orientation of the resection specimen was not provided, however, the invasive tumor is at least 4.6 cm away from the closest (stapled), which is noted to have black pigment tattooing in section A1. The TNM staging including distant metastes is based on the recent prior left liver lobe mass biopsy which showed metastatic adenocarcinoma, typical of colorectal primary, involving liver ([id number]), although it is uncertain if there are other metastases. . A properly-controlled ALANIS pankeratin stain performed on A4 highlights the close approach of invasive tumor buds to overlying reactive mesothelial cells at their serosal surface. . A4 reviewed with Dr. Sanam Timmons, who agrees with the diagnosis. . (ROHAN:heather; 06/01/2019) . [address] [address] PATHOLOGY RPT PROCEDURE Name: ALFONZO MEZA Room: [address] IN [facility]#: [id number] Admission: 05/22/19 Date of : 69 Discharge: Report #: [id number] Path Case #: [id number] Electronically signed: . Jared Marlow MD, Pathologist NPI- [id number] . 01 Gross description: . A. The specimen is received in formalin, labeled "Alfonzo Meza, left colon and sigmoid". Received is an unoriented segment of colon measuring 33.2 cm in length and ranging in diameter from 2.5 to 3.2 cm. One margin is stapled closed and the opposite margin is open. The serosal surface is pale syed and glistening in appearance. The attached pericolic fat measures up to 4.5 cm in thickness. At the stapled margin, there is a slight amount of tattooing present. The specimen is opened along the antimesenteric line to reveal a blue mesh-like stent located near the stapled margin measuring 12.5 cm in length by 2.6 cm in diameter. The stent has made mesh-like impressions on the mucosa measuring 12.6 cm in length. Within this area (see attached photographs), there is a circumferential light syed mass measuring 4.8 cm in length by 2.0 cm in diameter, which is 4.6 cm from the closest margin (stapled). There is a metallic biopsy marker located 1.3 cm from this mass, which is 5.9 cm from the stapled margin. The opposing serosal and fatty surfaces are inked black. Sectioning reveals the mass to grossly extend through the muscularis propria displaying a maximum depth of invasion of 1.1 cm, which grossly approaches the inked fatty surface, and is 4.3 cm from the mesenteric margin. The remainder of the mucosa is light syed with normal architectural folds. No additional nodules or lesions are noted grossly. Dissection and palpation of the attached pericolic fat reveals 21 readily identifiable lymph nodes ranging in size from 0.1 to 0.6 cm in maximum dimensions. The specimen is submitted representatively as follows: . A1 stapled margin, en face A2 open margin, en face A3 longitudinal section through mesenteric margin (orange ink) A4-A5 authorization representative section of mass to show relationship with inked fatty surface A6-A9 additional authorization representative sections of mass A10-A11 authorization representative sections of mucosa with stent impressions A12 uninvolved mucosa A13-A16 intact lymph nodes A17 one bisected lymph node. . B. The specimen is received in formalin, labeled "Alfonzo Meza, anastomotic ring x2". Received are two anastomotic rings of pale syed to parnell-syed mucosa measuring 2.1 x 1.7 x 0.6 and 2.2 x 1.5 x 0.4 cm in greatest dimensions. Ecommerce Project Manager sections from each ring are submitted in cassette B1. (CAA; 05/28/2019) QAC/QAC . 02 Pathologist provided ICD-10: [place] [address] PATHOLOGY RPT PROCEDURE Name: BALTAZARALFONZO NEWMAN Manpreet Room: [address] IN [facility]#: [id number] Admission: 05/22/19 Date of : 69 Discharge: Report #: [id number] Path Case #: [id number] C18.7 . 02 CPT . 228437, [id number], [id number], [id number], [id number] Specimen Comment: A courtesy copy of this report has been sent to Specimen Comment: [phone], . Specimen Comment: Report sent to / DR JOHNSON Performed at: [address], [place], [place] [id number] MD Yovani Solano MD Phone: [phone] Performed at: 02 [facility] [address], [place], [place] [id number] MD Jared Marlow MD Phone: [phone]
[2019-06-01 17:13] VITALS: BP 122/77
--- NOTE | 2019-06-01 17:28 | NUR ---
pt remained alert and oriented. pt tolerated clear liquid diet. pt did not tolerate full liquid, pt vomited 700 ml emesis. physician notified. fall risk precautions in place. hourly rounding completed. will continue to monitor.
[2019-06-01 21:06] VITALS: BP 127/77
[2019-06-02 04:25] LABS: HEMATOCRIT 26.6 % (42.0-52.0); HEMOGLOBIN 8.2 gm/dL (14.0-18.0); MCH 20.7 pg (26.0-34.0); MCHC 30.8 g/dL (28.0-37.0); MCV 67.1 fL (80.0-100.0); MPV 7.6 fl. (7.2-11.1); RBC 3.97 mil/uL (4.50-6.00); RDW-CV 17.2 % (10.5-14.5); WBC 11.2 thou/uL (4.0-11.0)
[2019-06-02 04:40] LABS: ALBUMIN 1.7 g/dL (3.4-5.0); CALCIUM 7.9 mg/dL (8.5-10.1); CREATININE 0.9 mg/dL (0.6-1.3); MAGNESIUM 2.1 mg/dL (1.8-2.4); POTASSIUM 4.7 mmol/L (3.5-5.1); TOTAL BILIRUBIN 0.3 mg/dL (<0.1-1.0); TOTAL PROTEIN 5.6 g/dL (6.4-8.2)
--- NOTE | 2019-06-02 06:35 | NUR ---
AT THE BEGINNING OF SHIFT PATIENT DID NOT WANT ANY ORAL MEDS DUE TO VOMITING EARLIER IN THE DAY. HE DID REQUEST PAIN MEDS AT 0515 TOOK 1 HYDROCODONE AND WAS ABLE TO KEEP THAT DOWN WITH A SIP OF WATER. HE RESTED THROUGH THE NIGHT AND WAS ABLE TO TAKE ICE CHIPS WITHOUT NAUSEA OR VOMITING. WILL CONTINUE TO MONITOR.
[2019-06-02 10:02] VITALS: BP 125/81
[2019-06-02 15:57] VITALS: BP 113/71
--- NOTE | 2019-06-02 16:33 | NUR ---
CM CONTINUING TO FOLLOW. WILL ADVANCE TO FULL LIQUID DIET FOR SUPPER. HAS ADVANCED SLOWLY DUE TO ILEUS/NAUSEA/VOMITING. WALKING 200 FT. WITH THERAPY. SHOULD HAVE NO DISCHARGE NEEDS. CM TO CONT. TO FOLLOW.
--- NOTE | 2019-06-02 19:33 | NUR ---
ASSUMED CARE OF PATIENT AT APPROX 0730. ALERT AND ORIENTED X4. ASSESSMENT COMPLETED AND CHARTED. VSS ON ROOM AIR. PAIN MANAGED WITH ORAL MEDICATIONS. NO COMPLAINTS OF NAUSEA OR VOMITING WITH FULL LIQUID DIET CHANGE. PROCAL INFUSING ORDERED. PATIENT UP AD LIOR IN THE ROOM AND WALKING THE UNIT. SHOWERED THIS AFTERNOON. INSTRUCTED TO USE CALL LIGHT FOR NEEDS. HOURLY ROUNDS COMPLETED. NURSING WILL CONTINUE TO MONITOR.
[2019-06-02 20:34] VITALS: BP 116/76
--- NOTE | 2019-06-03 06:00 | NUR ---
BEGINNING OF SHIFT HE REFUSED PO MEDS BECAUSE HE HAD NAUSEA AND VOMITING PRIOR SHIFT. HE FELT HE COULD HANDLE HYDROCODONE GAVE HIM 2 TABS AT BEDTIME. HE SLEPT WELL THROUGH THE NIGHT. HAD IRON SUCROSE AND PROCALAMINE IV RUNNING THROUGH SHIFT. GAVE SCHEDULED TYLENOL AT 0300. PATIENT VOMITED AT 0415. HELD PO MEDS IN MORNING. HIS PAIN IS RATED 2/10. FULL LIQUID DIET MAY NOT BE TOLERATED TODAY. WILL CONTINUE TO MONITOR.
[2019-06-03 07:40] VITALS: BP 114/72
[2019-06-03] MEDS ORDERED: HYDROCODON-ACE1 EAC7 PO (09:15)
[2019-06-03] MEDS ORDERED: NEURONTIN 300300 M1 PO (09:15)
[2019-06-03] MEDS ORDERED: ZOFRAN ODT4 MG DISSOLVE (09:31)
--- NOTE | 2019-06-03 11:09 | EKG ---
[place] [address] ELECTROCARDIOGRAM REPORT Name: JOANNENAYELY Bass Room: [address] ADM IN ..#: [id number] Admission: 05/22/19 Attend Phys: Samantha Zuniga MD Discharge: Date of : 69 Report #: [id number] THIS REPORT FOR: //name// [facility] Test Date: 2019-06-03 Test Time: 10:31:21 Pat Name: NAYELY CHERY Department: Room: [address] Gender: M Counter Stitcher: : 1965 Requested By: James Anderson Order Number: [id number] Salvador MD: Jaiden Voss Measurements Intervals [place] Rate: 83 P: 24 [place]: 157 QRS: 25 QRSD: 94 T: -3 QT: 367 QTc: 432 Interpretive Statements Sinus rhythm Borderline T abnormalities, inferior leads No previous ECG available for comparison Electronically Signed On 06-03-2019 11:09:22 CDT by Jaiden Voss [email or web address] <ELECTRONICALLY SIGNED> By: Jaiden Voss MD, [facility] 06/03/19 1109 [id number] [id number] Jaiden Voss MD, FACC /EPI
[2019-06-03 16:00] VITALS: BP 128/76
--- NOTE | 2019-06-03 16:18 | NUR ---
ASSUMED CARE OF PATIENT AT APPROX 0730. ALERT AND ORIENTED X4. ASSESSMENT COMPLETED AND CHARTED. VSS ON ROOM AIR. PAIN MANAGED WITH HYDROCODONE AND IBUPROFEN. NO COMPLAINTS OF NAUSEA. PATIENT DID VOMIT A SMALL AMOUNT EARLY THIS MORNING, APPROX AN HOUR AFTER TAKING 650 MG TYLENOL. I HAVE NOT GIVEN TYLENOL TODAY, OTHER THAN WHAT IS INCLUDED IN HYDROCODONE. NO VOMITING THIS SHIFT. PATIENT DID COMPLAIN OF INCREASED PAIN IN HIS MID RIGHT FLANK AREA WHICH DISSAPATED AFTER GETTING UP AND WALKING AROUND. SURGICAL DRESSING SOILED WITH SEROUS DRAINAGE NEAR THE BOTTOM OF THE INCISCION SITE. PATIENT SHOWERED AND I CHANGED THE DRESSING AND APPLIED A NEW STERILE DRESSING. NO OPENING VISUALIZED IN THE INCISION LINE. NO SIGNS OF INFECTION NOTED TO ENTIRE INCISION AREA. NO PAIN UPON PALPATION OF THE ABDOMEN. NO SIGN OF SWELLING OR ENLARGEMENT OF ABDOMEN. PATIENT AFEBRILE THIS SHIFT. PRO ANNA INFUSED UNTIL LEFT HAND IV INFILTRATED. NEW IV STARTED BY INFUSION IN LEFT POSTERIOR FOREARM. CT SCAN ORDERED FOR ABDOMEN/PELVIS, WILL REPORT FINDINGS TO DR SANCHEZ. HOURLY ROUNDS COMPLETED. CALL LIGHT WITHIN REACH. WILL CONTINUE TO MONITOR.
[2019-06-03 20:00] VITALS: BP 119/75
[2019-06-04 04:00] VITALS: BP 113/81
[2019-06-04 08:30] VITALS: BP 124/72
[2019-06-04 13:54] VITALS: BP 124/72
[2019-06-04 14:23] LABS: HEMATOCRIT 30.3 % (42.0-52.0); HEMOGLOBIN 9.3 gm/dL (14.0-18.0); MCH 20.9 pg (26.0-34.0); MCHC 30.5 g/dL (28.0-37.0); MCV 68.5 fL (80.0-100.0); MPV 7.7 fl. (7.2-11.1); RBC 4.43 mil/uL (4.50-6.00); RDW-CV 17.5 % (10.5-14.5); WBC 17.4 thou/uL (4.0-11.0)
[2019-06-04 14:30] LABS: CALCIUM 8.3 mg/dL (8.5-10.1); CREATININE 0.9 mg/dL (0.6-1.3); POTASSIUM 4.6 mmol/L (3.5-5.1)
[2019-06-04 14:33] LABS: APTT 29.6 Seconds (25.0-31.3); INR 1.1; PROTIME 10.9 Seconds (9.20-11.50)
[2019-06-04 16:30] VITALS: BP 115/67
--- NOTE | 2019-06-04 20:04 | NUR ---
I ASSUMED CARE OF THE PATIENT AT 0700. HE IS ALERT AND ORIENTED X4 AND IS UP AD LIOR. BED IS IN THE LOW LOCKED POSITION AND CALL LIGHT IS IN REACH. HOURLY ROUNDING IS COMPLETE AND PATIENT NEEDS ARE MET. PAIN IS MANAGED WITH PRN MEDS. PATIENT IS ABLE TO HAVE 3 BOWEL MOVEMENTS. PATIENT HAD ABCESS DRAINED TODAY AND DIET WAS ADVANCED TO FULL LIQUID AND TOLERATED. IS AT THE BEDSIDE AND HIS SPIRITS SEEM TO BE LIFTING HIS DAY GETS BETTER. WILL CONTINUE TO MONITOR.
[2019-06-04 21:00] VITALS: BP 121/77
[2019-06-05 04:10] LABS: HEMATOCRIT 25.5 % (42.0-52.0); HEMOGLOBIN 7.8 gm/dL (14.0-18.0); MCHC 30.8 g/dL (28.0-37.0); MCV 68.1 fL (80.0-100.0); MPV 7.7 fl. (7.2-11.1); RBC 3.74 mil/uL (4.50-6.00)
[2019-06-05 04:21] LABS: ALBUMIN 1.8 g/dL (3.4-5.0); CALCIUM 7.9 mg/dL (8.5-10.1); CREATININE 0.8 mg/dL (0.6-1.3); MAGNESIUM 2.1 mg/dL (1.8-2.4); PHOSPHORUS* 2.4 mg/dL (2.5-4.9); POTASSIUM 4.3 mmol/L (3.5-5.1)
--- NOTE | 2019-06-05 05:36 | NUR ---
VSS RA. MEDS GIVEN ORDERED. PT DENIED N/V THIS SHIFT. PAIN MANAGED WITH SCHEDULED IBUPROFEN. MIDLINE INCISION/DRESSING CLEAN AND INTACT WITH SMALL AMOUNT OF SANGUINEOUS DRAINAGE. DRESSING TO RT FLANK C/D/I. PT RESTING/SLEEPING QUIETLY THROUGH THE NIGHT. AT BEDSIDE. WILL CONTINUE TO MONITOR.
[2019-06-05 07:25] VITALS: BP 127/71
[2019-06-05 08:45] VITALS: BP 115/73
[2019-06-05 08:59] VITALS: BP 115/73
[2019-06-05 14:31] VITALS: BP 115/73
--- NOTE | 2019-06-05 17:47 | NUR ---
PT REMAINED ALERT AND ORIENTED. PT TOLERATED REGULAR DIET. PT GIVEN DISCHARGE INFORMATION, CARE NOTES, AND PRESCRIPTIONS. IV REMOVED. PT WAITING ON TO ARRIVE FOR DISCHARGE. FALL RISK PRECAUTIONS IN PLACE. HOURLY ROUNDING COMPLETED. WILL CONTINUE TO MONITOR.
[2019-06-05 18:55] VITALS: BP 115/73
--- NOTE | 2019-06-05 18:56 | NUR ---
PT DENIED ANY FURTHER QUESTIONS OR CONCERNS AT THIS TIME. PT ELFT VIA WHEELCHAIR WITH NURSING STAFF TO HOME WITH SPOUSE. FALL RISK PRECAUTIONS IN PLACE. HOURLY ROUNDING COMPLETED.
== END 2019-06-05 18:56 | disposition home or self-care (01) | DRG 329 ==
LOC: M.ERS 06:22 → M.TBA-ER 09:19 → M.ORTHSURG 09:19
PROVIDERS: Emergency Medicine; Family Medicine; Internal Medicine Gastroenterology; Surgery; ADMIT Internal Medicine
PROC: 0DJD8ZZ Inspection of Lower Intestinal Tract, Via Natural or Artificial Opening Endoscopic (ICD-10-PCS; 2019-05-22)
PROC: 0FB23ZX Excision of Left Lobe Liver, Percutaneous Approach, Diagnostic (ICD-10-PCS; 2019-05-25)
PROC: 0DTG0ZZ Resection of Left Large Intestine, Open Approach (ICD-10-PCS; principal; 2019-05-27)
PROC: 0F913ZX Drainage of Right Lobe Liver, Percutaneous Approach, Diagnostic (ICD-10-PCS; 2019-06-04)
DX: C18.7 Malignant neoplasm of sigmoid colon (principal); E43 Unspecified severe protein-calorie malnutrition; K75.0 Abscess of liver; K56.699 Other intestinal obstruction unspecified as to partial versus complete obstruction; K31.1 Adult hypertrophic pyloric stenosis; H33.22 Serous retinal detachment, left eye; C78.7 Secondary malignant neoplasm of liver and intrahepatic bile duct; E87.1 Hypo-osmolality and hyponatremia; R73.9 Hyperglycemia, unspecified; E87.8 Other disorders of electrolyte and fluid balance, not elsewhere classified; K59.00 Constipation, unspecified; D50.9 Iron deficiency anemia, unspecified; Z68.22 Body mass index [BMI] 22.0-22.9, adult; Z82.49 Family history of ischemic heart disease and other diseases of the circulatory system; Z82.3 Family history of stroke

== ENCOUNTER → 2019-06-23 | Day surgery (SDC) | payer OTHER ==
[~2019-06-23] MED LIST: HYDROCODON-ACE1 EAC7 PO; NEURONTIN 300300 M1 PO; ZOFRAN ODT4 MG DISSOLVE
--- NOTE | 2019-06-26 14:05 | OP ---
[address] [address] OPERATIVE REPORT Name: NAYELY CHERY [id number] Admission: 06/23/19 Attend Phys: Tray Jennings MD Discharge: Date of : 69 Report #: [id number] THIS REPORT FOR: //name// CC: Tray Jennings [facility] physician/PCP DATE OF SERVICE: 06/23/2019 PROCEDURE PERFORMED: Placement of right IJ Port-A-Cath with ultrasound and fluoroscopic guidance. PREOPERATIVE DIAGNOSES: Metastatic colorectal cancer to the liver. POSTOPERATIVE DIAGNOSIS: Metastatic colorectal cancer to the liver. SURGEON: Dr. Jennings. CUTTER DOWN: None. ANESTHESIA: 1. MAC. 2. Marcaine with epinephrine. ESTIMATED BLOOD LOSS: Less than 5 mL. URINE OUTPUT: Not measured. COMPLICATIONS: None. FINDINGS: Normal anatomy. INDICATION FOR PROCEDURE: The patient is a very pleasant 54-year-old gentleman with newly diagnosed metastatic colon cancer to the liver. The patient presents today for Port-A-Cath so that he can undergo chemotherapy. The risks, benefits and alternatives of the procedure were discussed with the patient. The risks discussed included but were not limited to the risk of bleeding, infection, Port-A-Cath infection requiring removal, pneumothorax requiring chest tube, central veins requiring blood transfusions and thoracotomy, anesthesia including cardiac, pulmonary, neurologic type complications, and . The patient and his had the opportunity to ask questions. All questions were answered to the best of my ability. At the end of the discussion, he did wish to proceed with the procedure. Alternatives discussed included no Port-A-Cath and continued chemotherapy through IVs. He has struggled with this in the past. PROCEDURE: After informed consent was obtained, as above. The patient was taken to the operating room and placed in supine position. [place] [address] OPERATIVE REPORT Name: NAYELY CHERY Room: [facility].#: [id number] Admission: 06/23/19 Attend Phys: Tray Jennings MD Discharge: Date of : 69 Report #: [id number] induced. Preprocedural antibiotics were administered. The anterior chest and neck were draped bilaterally in the usual standard fashion. A timeout was performed. All were in agreement. The right IJ was localized with the ultrasound. The skin overlying this region was anesthetized. An 11 blade scalpel was used to make a skin mariaa. The needle was used to access the IJ with ultrasound. This took one attempt and was done successfully without difficulty. The needle was expelling nonpulsatile dark blood upon removal of the syringe. Guidewire was passed. Guidewire passed very easily without any difficulty and it only took one attempt. The position of the guidewire was confirmed using fluoroscopy. The lung markings that extend all the way out to margins of the chest. The guidewire was then secured. The pocket was then created on the right chest. After anesthetizing the skin in this region, a 2.5 cm incision was made, carried down to the chest wall using electrocautery. The pocket was made anteriorly using electrocautery. The Port-A-Cath was secured to the chest wall using 0 Prolene. The Port-A-Cath was then tunneled to the skin incision on the neck, it was pre-flushed. The length of the catheter was estimated using fluoroscopy, cut to the appropriate length. The dilator and sheath was passed down the guidewire while wiggling the guidewire to ensure that these two do not get pass through the wall of the vein. The dilator and guidewire were removed. The sheath was removed. The catheter was left in place. The Port-A-cath catheter was then tested. It did aspirate dark blood, it was then flushed and flushed very easily. The Port-a-Cath was then locked with 1000 units per mL of saline solution. Hemostasis was present. The fluoroscopy was used to confirm the position of the catheter and to confirm that there were no kinks and indeed there were no kinks and the catheter was in good position. Lung markings were confirmed all the way out to the margin of the chest. The skin overlying the pocket site was closed using 3-0 Vicryl for the deep dermal layer in an interrupted fashion and 4-0 Monocryl for the subcuticular layer in running subcuticular fashion. The skin mariaa on the neck was closed using 4-0 Monocryl in a subcuticular interrupted fashion. The neck site was clean and dry and Dermabond was applied. The patient tolerated the procedure well and there were no adverse events throughout the course of the procedure. <ELECTRONICALLY SIGNED> By: Tray Jennings MD 06/26/19 1405 1357 [id number] Jennings MD /charline
== END | disposition home or self-care (01) ==
LOC: M.SUR 07:56 → M.MRI 10:04 → M.SUR 10:04
DX: Z45.2 Encounter for adjustment and management of vascular access device (principal); C18.9 Malignant neoplasm of colon, unspecified; C78.7 Secondary malignant neoplasm of liver and intrahepatic bile duct; Z88.0 Allergy status to penicillin; Z79.891 Long term (current) use of opiate analgesic; Z98.890 Other specified postprocedural states

== ENCOUNTER → 2020-05-12 | Outpatient (CLI) | payer OTHER | LOC: M.MRI 05-10 07:30 | PROVIDERS: ATTEND Internal Medicine Hematology & Oncology | DX: C78.7 Secondary malignant neoplasm of liver and intrahepatic bile duct (principal); C18.9 Malignant neoplasm of colon, unspecified ==

== ENCOUNTER → 2020-09-28 | Outpatient (CLI) | payer OTHER | LOC: M.MRI 10:40 | PROVIDERS: ATTEND Internal Medicine Hematology & Oncology | DX: C18.9 Malignant neoplasm of colon, unspecified (principal); C78.7 Secondary malignant neoplasm of liver and intrahepatic bile duct; K80.20 Calculus of gallbladder without cholecystitis without obstruction; Z88.0 Allergy status to penicillin; Z88.8 Allergy status to other drugs, medicaments and biological substances; Z98.890 Other specified postprocedural states ==